=== PATIENT | male | born 1995 | race African-American/Black ===

== ENCOUNTER 2023-10-07 03:14 | Emergency (ER) | payer BC ==
[2023-10-07] MEDS: Ketorolac 30 MG/ML SDV IM ONE (04:00)
[2023-10-07] MEDS: SUMAtriptan 6 MG/0.5 ML SDV SUBCUT ONE (04:01)
[2023-10-07] MEDS: Acetaminophen 500 MG Tab PO ONE (04:44)
[2023-10-07] MEDS: Ondansetron 4 MG Tab.DIS PO ONE (04:44)
== END 2023-10-07 04:47 | disposition home or self-care (01) ==
LOC: FB.ED 03:14
DX: G43.109 Migraine with aura, not intractable, without status migrainosus (principal)
CPT/HCPCS: 70450; 82947; 96372; 99283; 99284; A9270-GY; J1885; J3030; Q0162